=== PATIENT | male | born 1930 | race Asian ===

== ENCOUNTER 2018-05-18 11:37 | Inpatient (IN) | payer MEDICARE, BC, OTHER ==
[~2018-05-18] VITALS: Ht 152.4 cm; Wt 68.5 kg
[~2018-05-18 11:37] MED LIST: ALTACE5 MG PO; APAP500 PO; ASPIRIN EC81 M1 PO; ATORVASTATIN CA20 MG PO; B-COMPLEX PLUS1 EACH PO; BENADRYL25 MG PO; CARDIZEM CD240 MG PO; COREG6.25 MG PO; COUMADIN 2.5MG2.5 M1 PO; COUMADIN 5 MG TA5 M1 PO; CYCLOBENZAPRINE5 MG PO; FISH OIL 1,001000 M1 PO; GLUCOPHAGE500 MG PO; GLUCOSAMINE1000 MG PO; GLUMETZA500 PO; LAVITRA PO; LEVITRA20 MG PO; LOPRESSOR25 PO; MULTIVITAMINS1 EAC7 PO; RAMIPRIL PO; SORINE 80 MG TA80 M1 PO; SOTALOL240 MG PO; SYNTHROID100 MCG PO; TIKOSYN.5 PO; TOPROL XL50 MG PO; [UNRECOGNIZED DRUG - OTHER] PO
[2018-05-18 11:39] VITALS: BP 132/105
[2018-05-18] MEDS ORDERED: METFORMIN HCL500 MG PO (12:04)
[2018-05-18] MEDS ORDERED: TYLENOL325 MG PO (12:04)
[2018-05-18] MEDS ORDERED: TIKOSYN.5 PO (12:06)
[2018-05-18] MEDS ORDERED: FISH OIL 1,001000 M2 PO (12:07)
[2018-05-18] MEDS ORDERED: MULTI VITAMIN1 EACH PO (12:07)
--- NOTE | 2018-05-18 12:13 | NUR ---
PT'S NURSE AT [facility], VIRGIE, CONTACTED FOR MORE INFORMATION ABOUT AN URGENT CARE VISIT & PRESCRIBED MEDS FROM THAT VISIT PRIOR TO HIS ADMISSION TO [facility]. PER VIRGIE, PT WAS ADMITTED FOR CLOSED HEAD INJURY INTO [facility] 05/15/18 AND HE HAS BEEN MORE ALERT THIS MORNING THAN ANY MORNING PRIOR SINCE ADMISSION. PT HAD BEEN ON FLEXERIL PER VIRGIE, AND SHE HAD DR. César TREJO YESTERDAY DUE TO LETHARGY IN THE MORNINGS BUT PT TOOK XANAX LAST NIGHT AND STARTED ZANAFLEX THIS AM. REPORTED THIS INFORMATION TO DR. TORRES.
[2018-05-18] MEDS ORDERED: LEVITRA20 MG PO (12:14)
[2018-05-18] MEDS ORDERED: VIAGRA100 MG PO (12:17)
[2018-05-18] MEDS ORDERED: LIPITOR 20 MG T20 M1 PO (12:18)
[2018-05-18] MEDS ORDERED: TOPROL XL100 MG PO (12:18)
[2018-05-18] MEDS ORDERED: OMEPRAZOLE 20 M20 M1 PO (12:18)
[2018-05-18] MEDS ORDERED: SYNTHROID100 MC1 PO (12:19)
[2018-05-18] MEDS ORDERED: ASPIR 8181 MG PO (12:19)
[2018-05-18] MEDS ORDERED: COLACE100 MG PO (12:19)
[2018-05-18] MEDS ORDERED: GLUCOSAMINE CH1 EAC2 PO (12:20)
[2018-05-18] MEDS ORDERED: ALTACE10 MG PO (12:21)
[2018-05-18] MEDS ORDERED: COUMADIN 5 MG TA5 M1 PO (12:22)
[2018-05-18] MEDS ORDERED: XANAX 0.25 MG0.25 MG PO (12:23)
[2018-05-18] MEDS ORDERED: COUMADIN 4 MG TA4 M1 PO (12:23)
[2018-05-18] MEDS ORDERED: ZANAFLEX2 MG PO (12:24)
[2018-05-18 12:34] LABS: HEMATOCRIT 36.5 % (42.0-52.0); HEMOGLOBIN 12.3 gm/dL (14.0-18.0); MCH 33.3 pg (26.0-34.0); MCHC 33.6 g/dL (28.0-37.0); MPV 8.2 fl. (7.2-11.1); NUCLEATED RBCS 0 /100WBC; PLATELET COUNT* 377 thou/uL (150-400); RBC 3.69 mil/uL (4.50-6.00); WBC 9.6 thou/uL (4.0-11.0)
[2018-05-18 12:47] LABS: INR 4.3; PROTIME 43.9 Seconds (9.20-11.50)
[2018-05-18 12:53] LABS: PCO2 31.4 mmHg (35.0-45.0)
[2018-05-18 13:00] LABS: ALBUMIN 2.3 g/dL (3.4-5.0); ALKALINE PHOSPHATASE 106 U/L (46-116); ANION GAP 10 mmol/L (7-16); BUN 31 mg/dL (7-18); CALCIUM 8.5 mg/dL (8.5-10.1); CHLORIDE 99 mmol/L (98-107); CO2 23 mmol/L (21-32); GLUCOSE 135 mg/dL (70-99); POTASSIUM 4.5 mmol/L (3.5-5.1); SGOT 99 U/L (15-37); SGPT 112 U/L (30-65); SODIUM 132 mmol/L (136-145); TOTAL BILIRUBIN 0.8 mg/dL (<0.1-1.0); TOTAL PROTEIN 7.4 g/dL (6.4-8.2); TROPONIN-I LEVEL <0.06 ng/mL (<0.06)
[2018-05-18 13:08] LABS: ABSOLUTE LYMPHOCYTES 1.1 thou/uL (0.8-5.3); ABSOLUTE MONOCYTES 0.2 thou/uL (0.0-1.2); ABSOLUTE NEUTROPHILS 8.4 thou/uL (1.6-8.1); ATYPICAL LYMPHS 3 %; PLATELET ESTIMATE ADEQUATE
[2018-05-18 13:31] LABS: URINE BILIRUBIN NEGATIVE (Negative); URINE BLOOD NEGATIVE (Negative); URINE CLARITY CLEAR; URINE COLOR YELLOW; URINE GLUCOSE-RANDOM NEGATIVE (Negative); URINE KETONES NEGATIVE (Negative); URINE LEUKOCYTES-REFLEX NEGATIVE (Negative); URINE NITRITE-REFLEX NEGATIVE (Negative); URINE PROTEIN TRACE (Negative); URINE SPECIFIC GRAVITY >= 1.030 (1.005-1.030); URINE UROBILINOGEN 0.2 E.U./dl (0.2-1.0)
[2018-05-18 13:50] VITALS: BP 93/55
[2018-05-18 15:00] VITALS: BP 94/55
--- NOTE | 2018-05-18 16:28 | NUR ---
ASSUMED PT CARE REPORT RECEIVED FROM ER NURSE. PT ARRIVED ON FLOOR VIA STRETCHER ACCOMPANIED BY NURSE AND DAUGHTER. PT WAS SLEEPY DURING THE FIRST HOURS AFTER ADMISSION. ADMISSION HX OBTAINED FROM DAUGHTER WHO KNOWS PT VERY WELL. VSS. BP SOFT 94/55. NS WIDE OPEN ADMINISTERED. PT COMPLAINS OF PAIN IN R SHOULDER. LIDOCAINE PATCH APPLIED ORDERED. HEATING PAD ORDERED. WILL USE ON SHOULDER WELL. ORTHO SX CONSULTED. AWAIING FOR CALL BACK. PT HAS A PACER AND IS A PACED. HEART RATE 7O. PT USUALLY WEARS CPAP AT HS. SCDS IN PLACE. PT IS TO BE TURNED Q2 HOURS DUE TO RONAL SCALE. PT ORDERED DINER WITH FAMILY IN ROOM. PT WAS MORE AWAKE WHEN FAMILY CAME IN. FAMILY LEFT AFTER 1 HOUR. PT NOW RESTING IN BED. CALL LIGHT AT REACH. FALL PRECAUTION IN PLACE
--- NOTE | 2018-05-18 16:37 | NUR ---
BEDSIDE SWALLOWING EVAL DONE. PT COUGHS ON SIP OF WATER. FAMILY MEMBER MENTIONED THAT PT IS ON REGULAR DIET. HE ATE A BURGER LAST NIGHT. BUT HAS BEEN ON NECTAR THICKEN LIQUID AT THE SKILLED NURSING. SPEECH THERAPY OREDERED FOR THE MORNING. PT DIET MODIFIED TO REGULAR AND THICKEN FLUID
--- NOTE | 2018-05-18 18:00 | NUR ---
PT AWAKE AGAIN AND ATE HIS DINER MEAL. IV FLUID NOW INFUSING AT 100 PER HOUR. NO METFORMIN GIVEN BLOOD SUGAR IS 105 THIS EVENING. HEATING PAD WORKING OK INTERMITTENTLY EVERY 20 MINUTES.WILL CONTINUE TO MONITOR
[2018-05-18 19:30] VITALS: BP 110/60
[2018-05-19] VITALS: BP 138/72
[2018-05-19 04:00] VITALS: BP 128/66
--- NOTE | 2018-05-19 04:10 | NUR ---
RECIEVED REPORT AND ASSUMED CARE AT 1900. MOTHER REPAIRER IN PLACE. VITAL SIGNS STABLE. PT HAS RIGHT SHOULDER PAIN HEATING PACK AND REST HELPING TO MANAGE PAIN AT THIS TIME. ASSESSMENT COMPLETED AND DISCUSSED PLAN OF CARE. BED LOCK, ALARM ON AND CALL LIGHT WITHIN REACH. FALL PRECAUTIONS IN PLACE. HOURLY ROUNDING DONE AND ALL NEEDS MET. NURSING WILL CONTINUE TO MONITOR.
[2018-05-19 05:03] LABS: HEMATOCRIT 34.6 % (42.0-52.0); HEMOGLOBIN 11.5 gm/dL (14.0-18.0); MCH 32.9 pg (26.0-34.0); MCHC 33.1 g/dL (28.0-37.0); MCV 99.4 fL (80.0-100.0); RBC 3.48 mil/uL (4.50-6.00); WBC 7.4 thou/uL (4.0-11.0)
[2018-05-19 05:14] LABS: INR 4.4; PROTIME 44.8 Seconds (9.20-11.50)
[2018-05-19 05:37] LABS: CALCIUM 8.5 mg/dL (8.5-10.1); CREATININE 0.7 mg/dL (0.6-1.3); MAGNESIUM 1.5 mg/dL (1.8-2.4); POTASSIUM 4.4 mmol/L (3.5-5.1)
[2018-05-19 08:00] VITALS: BP 121/63
[2018-05-19 12:44] VITALS: BP 97/47
--- NOTE | 2018-05-19 13:05 | NUR ---
CM spoke with Pt's dtr via phone. Pt normally resides at home alone, but has recently been at [facility] post a fall. Pt's is a LTC resident at [facility]. Dtr unsure if she wants Pt to return to [facility], hopeful that he will be able to return home with HH. Pt has a cane that he uses PRN. Therapies ordered. Following.
--- NOTE | 2018-05-19 15:40 | NUR ---
I have reviewed the documentation by LUIS WOLFE from TODAY to 05/19/18 and I concur with it. SEBASTIEN BARBOSA
[2018-05-19 16:00] VITALS: BP 130/61
--- NOTE | 2018-05-19 17:38 | EKG ---
[place] [address] ELECTROCARDIOGRAM REPORT Name: JONATHAN FARRELL Room: [address] ADM IN .R.#: [id number] Admission: 05/18/18 Attend Phys: Ignacio Nina MD Discharge: Date of : 34 Report #: [id number] THIS REPORT FOR: //name// [facility] ED Test Date: 2018-05-18 Test Time: 13:12:44 Pat Name: JONATHAN FARRELL Department: Room: [facility] Gender: M Verification Lead: KAITLYNN : 1930 Requested By: Cyndi Denton Order Number: [id number] MD: Tyrone Reed Measurements Intervals [place] Rate: 70 P: 0 SD: 175 QRS: -25 QRSD: 127 T: -46 QT: 554 QTc: 598 Interpretive Statements Ventricular-paced rhythm Prolonged QT interval No further analysis attempted due to paced rhythm Baseline wander in lead(s) III No previous ECG available for comparison Electronically Signed On 05-19-2018 17:37:53 CDT by Tyrone Reed [email or web address] <ELECTRONICALLY SIGNED> By: Tyrone Reed MD, FACC 05/19/18 1737 1312 1312 Tyrone Reed MD, FAC /EPI
--- NOTE | 2018-05-19 19:44 | NUR ---
RECEIVED REPORT FROM NIGHT NURSE, ASSUMED CARE OF PT AROUND 0730. PT ALERT, ORIENTED TO SELF ONLY. ABLE TO FOLLOW SIMPLE COMMANDS. VSS. STEM ROLLER OR CRUSHER OPERATOR IN PLACE TRACING VPACED. AM ASSESSMENT AND VITALS COMPLETED CHARTED. IV'S INTACT. MEDS PER EMAR. PT DRANK ENSURE SHAKES FOR ALL MEALS, NOT INTERESTED IN SOLID FOOD. SEEN BY THERAPIES THIS SHIFT, UP TO CHAIR. INCONTINENT OF URINE, CLEANED MULTIPLE TIMES THIS SHIFT. TURNS Q2HRS. FALL PRECAUTIONS IN PLACE. CALL LIGHT IS WITHIN REACH. HOURLY ROUNDING.
[2018-05-19 20:00] VITALS: BP 110/65
[2018-05-20] VITALS: BP 122/68
[2018-05-20 04:00] VITALS: BP 127/71
[2018-05-20 05:15] LABS: PROTIME 21.7 Seconds (9.20-11.50)
[2018-05-20 05:35] LABS: INR 2.1
[2018-05-20 08:30] VITALS: BP 144/75
--- NOTE | 2018-05-20 08:40 | NUR ---
PATIENT RESTING IN BED. REPORT GIVEN TO ONCOMING NURSE.
[2018-05-20 12:50] VITALS: BP 130/63
[2018-05-20 17:42] VITALS: BP 111/56
--- NOTE | 2018-05-20 18:17 | NUR ---
PATIENT SOMEWHAT PROGRESSED WELL TOWARDS GOALS THIS SHIFT. COGNITION WAS MUCH MORE CLEAR THIS SHIFT, ABLE TO ANSWER MOST QUESTIONS APPRORPIATLEY. STILL HAVING RIGHT SHOULDER PAIN AND SEEMS TO FAVOR SHOULDER A LOT. HOT PAD ON AND OFF THROUGHOUT SHIFT. NO PAIN MEDICATION NEEDED. WORKED WITH PT/OT THIS SHIFT. WEANED OFF OXYGENATION AND MAINTAINING SATS. DAUGHTER VISITED THIS AFTERNOON AND HAPPY WITH PATIENT IMPROVMENT. WILL CALL TOMORROW FOR UPDATE. VITALS REMAIN STABLE THROUGHOUT SHIFT. BED IN LOWEST POSITION, CALL LIGHT IN REACH, POPCORN ATTENDANT IN PLACE.
[2018-05-20 19:50] VITALS: BP 122/64
[2018-05-21] VITALS: BP 124/73
[2018-05-21 04:00] VITALS: BP 123/77
[2018-05-21 05:44] LABS: INR 1.5; PROTIME 15.3 Seconds (9.20-11.50)
--- NOTE | 2018-05-21 05:49 | NUR ---
VITALS WNL. SEE MAR. SEE CHARTING. FALL PRECAUTIONS IN PLACE. HOURLY ROUNDING FOR SAFETY.
[2018-05-21 08:00] VITALS: BP 136/76
[2018-05-21] MEDS ORDERED: COUMADIN 4 MG TA4 M1 PO (11:34)
[2018-05-21] MEDS ORDERED: VOLTAREN GEL 1100 G1 TOP (11:36)
--- NOTE | 2018-05-21 12:02 | NUR ---
Pt discharging back to [facility] skilled today. Faxed dc orders. Chart copied. Nurse report number provided [phone]. Updated Pt's dtr, Cecilia. Facility will tile picker at 430pm.
--- NOTE | 2018-05-21 12:27 | NUR ---
ASSUMED PT CARE AT 0700 PT IS ALERT AND ORIENTED X 2 PT IS CONFUSED PT C/O SHOULDER PAIN APPLIED ORDERED MEDICATION WHICH PT SHOWS SIGNS OF RELIEVED PAIN, PT SHOWS NO SIGNS OF SOA ON RA, PT IS UP WITH ASSIST X 1 PT IS IMPULSIVE AND A FALL RISK CHAIR ALARM IN PLACE, PT IS VPACED ON THE MONITOR HAS PACEMAKER, PT IS PROGRESSING TOWARDS GOALS, PT IS CLEARED FOR DISCHARGE PT WILL TRANSFER BACK TO [facility], WILL CONTINUE TO MONITOR
[2018-05-21 13:01] VITALS: BP 136/76
--- NOTE | 2018-05-21 15:24 | NUR ---
PT. NOT SEEN DUE TO OT SCHEDULE CONFLICT
== END 2018-05-21 16:30 | DRG 92 ==
LOC: M.ERS 11:37 → M.2W 13:23 → M.TBA-ER 13:23 → M.2W 14:17
PROVIDERS: Personal Emergency Response Attendant; ADMIT Internal Medicine
DX: G92 Toxic encephalopathy (principal); E44.0 Moderate protein-calorie malnutrition; I48.91 Unspecified atrial fibrillation; I25.10 Atherosclerotic heart disease of native coronary artery without angina pectoris; I25.5 Ischemic cardiomyopathy; E11.9 Type 2 diabetes mellitus without complications; I10 Essential (primary) hypertension; Z96.653 Presence of artificial knee joint, bilateral; T50.905A Adverse effect of unspecified drugs, medicaments and biological substances, initial encounter; S49.91XA Unspecified injury of right shoulder and upper arm, initial encounter; I49.5 Sick sinus syndrome; E86.9 Volume depletion, unspecified; M24.411 Recurrent dislocation, right shoulder; E78.5 Hyperlipidemia, unspecified; K21.9 Gastro-esophageal reflux disease without esophagitis; Z90.49 Acquired absence of other specified parts of digestive tract; Z98.42 Cataract extraction status, left eye; Z98.41 Cataract extraction status, right eye; Z87.891 Personal history of nicotine dependence; Z95.0 Presence of cardiac pacemaker; Z86.73 Personal history of transient ischemic attack (TIA), and cerebral infarction without residual deficits; Z68.29 Body mass index [BMI] 29.0-29.9, adult; Z79.82 Long term (current) use of aspirin; Z79.899 Other long term (current) drug therapy; W18.39XA Other fall on same level, initial encounter; Y93.89 Activity, other specified; Y92.89 Other specified places as the place of occurrence of the external cause; Y99.8 Other external cause status

== ENCOUNTER 2019-03-08 12:52 | Inpatient (IN) | payer MEDICARE, BC, OTHER ==
[~2019-03-08] VITALS: Ht 157.5 cm; Wt 71.7 kg
[~2019-03-08 12:52] MED LIST changes: +ALTACE10 MG PO; +ASPIR 8181 MG PO; +COLACE100 MG PO; +COUMADIN 4 MG TA4 M1 PO; +FISH OIL 1,001000 M2 PO; +GLUCOSAMINE CH1 EAC2 PO; +LIPITOR 20 MG T20 M1 PO; +METFORMIN HCL500 MG PO; +MULTI VITAMIN1 EACH PO; +OMEPRAZOLE 20 M20 M1 PO; +SYNTHROID100 MC1 PO; +TOPROL XL100 MG PO; +TYLENOL325 MG PO; +VIAGRA100 MG PO; +VOLTAREN GEL 1100 G1 TOP; +XANAX 0.25 MG0.25 MG PO; +ZANAFLEX2 MG PO
[2019-03-08 12:53] VITALS: BP 131/66
[2019-03-08 13:23] LABS: ABSOLUTE BASOPHILS 0.1 thou/uL (0.0-0.2); ABSOLUTE EOSINOPHILS 0.1 thou/uL (0.0-0.7); ABSOLUTE MONOCYTES 0.7 thou/uL (0.0-1.2); ABSOLUTE NEUTROPHILS 6.9 thou/uL (1.6-8.1); BASOPHILS 1.1 %; EOSINOPHILS 1.7 %; HEMATOCRIT 35.7 % (42.0-52.0); HEMOGLOBIN 12.5 gm/dL (14.0-18.0); LYMPHOCYTES 11.8 %; MCH 35.1 pg (26.0-34.0); MCV 100.1 fL (80.0-100.0); MONOCYTES 7.7 %; MPV 7.7 fl. (7.2-11.1); NUCLEATED RBCS 0 /100WBC; PLATELET COUNT* 170 thou/uL (150-400); POLYS 77.7 %; RBC 3.57 mil/uL (4.50-6.00); RDW-CV 14.6 % (10.5-14.5); WBC 8.9 thou/uL (4.0-11.0)
[2019-03-08 13:52] LABS: CALCIUM 8.7 mg/dL (8.5-10.1); POTASSIUM 4.7 mmol/L (3.5-5.1)
[2019-03-08 13:56] LABS: ALBUMIN 3.8 g/dL (3.4-5.0); TOTAL BILIRUBIN 1.2 mg/dL (<0.1-1.0); TOTAL PROTEIN 7.4 g/dL (6.4-8.2)
[2019-03-08 15:39] LABS: URINE BILIRUBIN NEGATIVE (Negative); URINE BLOOD TRACE (Negative); URINE CLARITY CLEAR; URINE COLOR YELLOW; URINE GLUCOSE-RANDOM NEGATIVE (Negative); URINE KETONES NEGATIVE (Negative); URINE LEUKOCYTES-REFLEX NEGATIVE (Negative); URINE NITRITE-REFLEX NEGATIVE (Negative); URINE PROTEIN NEGATIVE (Negative); URINE SPECIFIC GRAVITY 1.015 (1.005-1.030); URINE UROBILINOGEN 0.2 E.U./dl (0.2-1.0)
[2019-03-08 16:32] LABS: INFLUENZA A ANTIGEN Negative (Negative); INFLUENZA B ANTIGEN Negative (Negative)
[2019-03-08 16:40] VITALS: BP 120/75
[2019-03-08 16:50] VITALS: BP 117/52
--- NOTE | 2019-03-08 17:57 | NUR ---
RECEIVED REPORT FROM GIANLUCA IN ED AND ASSUMED CARE OF PT @ 0674.DIETITIAN CONSULTANT IN PLACE TRACING V PACED.PT IS A/O X 3- DROWSY AND SLIGHTLY CONFUSED.NO C/O PAIN.PT AND FAMILY INFORMED OF THE PLAN OF CARE AND COMMUNICATES UNDERSTANDING-PT NEEDS REINFORCED.PT LEFT RESTING IN BED WITH CALL LIGHT AND FALL PRECAUTIONS IN PLACE.WILL CONTINUE TO MONITOR FOR DURATION OF SHIFT.
[2019-03-08 19:05] LABS: INR 1.8; PROTIME 18.2 Seconds (9.20-11.50)
[2019-03-08 20:00] VITALS: BP 125/56
[2019-03-08 21:07] LABS: AMP/METHAMP Negative (Negative); BARBITURATES Negative (Negative); BENZODIAZEPINES Negative (Negative); COCAINE Negative (Negative); METHADONE Negative (Negative); OPIATES Negative (Negative); PCP Negative (Negative); THC Negative (Negative)
[2019-03-08 23:40] VITALS: BP 96/60
[2019-03-09 04:00] VITALS: BP 107/60
[2019-03-09 04:47] LABS: ABSOLUTE EOSINOPHILS 0.1 thou/uL (0.0-0.7); ABSOLUTE MONOCYTES 0.7 thou/uL (0.0-1.2); ABSOLUTE NEUTROPHILS 4.3 thou/uL (1.6-8.1); BASOPHILS 0.5 %; EOSINOPHILS 1.8 %; HEMATOCRIT 35.2 % (42.0-52.0); HEMOGLOBIN 12.3 gm/dL (14.0-18.0); LYMPHOCYTES 16.9 %; MCH 34.7 pg (26.0-34.0); MCHC 34.9 g/dL (28.0-37.0); MCV 99.3 fL (80.0-100.0); MONOCYTES 11.4 %; MPV 8.3 fl. (7.2-11.1); NUCLEATED RBCS 0 /100WBC; PLATELET COUNT* 156 thou/uL (150-400); POLYS 69.4 %; RBC 3.54 mil/uL (4.50-6.00); RDW-CV 14.6 % (10.5-14.5); WBC 6.1 thou/uL (4.0-11.0)
[2019-03-09 04:58] LABS: INR 1.6; PROTIME 16.1 Seconds (9.20-11.50)
[2019-03-09 05:04] LABS: CALCIUM 8.1 mg/dL (8.5-10.1); CREATININE 0.8 mg/dL (0.6-1.3); POTASSIUM 4.2 mmol/L (3.5-5.1)
--- NOTE | 2019-03-09 05:57 | NUR ---
ASSUMED PT CARE AT 1900. PT FORGETFUL, UNABLE TO RECALL HOW PT GOT TO HOSPITAL OR WHY. V PACED ON PLANER HAND. PT VOICED NO CONCERNS THIS SHIFT. HIGH FALL PRECAUTIONS IN PLACE, HOURLY ROUNDING COMPLETED. CALL LIGHT WITHIN REACH. NEGATIVE SEPSIS SCREENING THIS SHIFT.
[2019-03-09 06:31] LABS: CHOLESTEROL 96 mg/dL (<200); HDL CHOLESTEROL 37 mg/dL (>40); LDL CHOLESTEROL 42 mg/dL (<100); SERUM ASSESSMENT Clear; TC:HDL 2.6 Ratio (Not establshd); TRIGLYCERIDE 88 mg/dL (<150); VLDL 18 mg/dL (<40)
[2019-03-09 06:34] LABS: ESR (SEDRATE) 44 mm/hr (0-20)
[2019-03-09 08:00] VITALS: BP 91/58
--- NOTE | 2019-03-09 09:59 | EKG ---
[place] [address] ELECTROCARDIOGRAM REPORT Name: SAMREDDYJONATHAN Room: [address] ADM IN [facility].#: [id number] Admission: 03/08/19 Attend Phys: Juanjo Skaggs MD Discharge: Date of : 34 Report #: [id number] THIS REPORT FOR: //name// [facility] ED Test Date: 2019-03-08 Test Time: 13:12:00 Pat Name: JONATHAN FARRELL Department: Room: [facility] Gender: M Technical Sales Specialist: LUNA : 1930 Requested By: Darryl Rodriguez Order Number: [id number] MD: Black Estrada Measurements Intervals [place] Rate: 76 P: 0 MO: 145 QRS: -53 QRSD: 123 T: QT: 447 QTc: 503 Interpretive Statements atrial fibrillation with ventricular paced beats No further analysis attempted due to paced rhythm Compared to ECG 05/18/2018 13:12:44 no change Electronically Signed On 03-09-2019 9:58:53 INTERNATIONAL SALES MANAGER by Black Estrada [email or web address] <ELECTRONICALLY SIGNED> By: Black Estrada MD, [facility] 03/09/19 0958 1312 1312 Black Estrada MD, [facility] /EPI
--- NOTE | 2019-03-09 11:25 | NUR ---
ASSUMED CARE OF PATIENT THIS AM AT 0730. PATIENT IS ALERT AND ORIENTED X 4. HE DENIES PAIN AND DISCOMFORT. TELE SHOWS V PACED RHYTHM. PATIENT IS SOMEWHAT ANXIOUS ABOUT NOT BEING ABLE TO FIND HIS CELL PHONE. PATIENT IS TAKING HIS CLEAR LIQUID DIET WELL. ATTEMPTED TO CALL [facility] TO TRY TO LOCATE PATIENT'S CELL PHONE. SO FAR UNABLE TO LOCATE IT.PATIENT IS WORKING WITH PT AND OT. HE HAS BEEN UP IN THE HALLS WITH ASSIST. WILL CONTINUE TO MONITOR.
[2019-03-09 12:00] VITALS: BP 107/54
--- NOTE | 2019-03-09 14:33 | 2DMMODE ---
[place] [address] 2 D/M-MODE ECHOCARDIOGRAM Name: JONATHAN FARRELL Room: [address] IN [facility]#: [id number] Admission: 03/08/19 Attend Phys: Juanjo Skaggs, Discharge: Date of : 34 Date of Service: 03/09/19 1433 Report #: [id number] THIS REPORT FOR: //name// APPROVED REPORT Study performed: 03/09/2019 11:46:20 EXAM: Limited 2D Echocardiogram Patient Location: In-Patient Room #: 218 Status: routine BSA: 1.64 HR: 70 bpm BP: 91/58 mmHg Rhythm: NSR Other Information Study Quality: Good Indications CVA/TIA Echo Enhancing Agent Indication: Rule out Shunt Agent(s) / Amount(s) Used: Agitated Saline 10 cc 2D Dimensions IVSd: 10.72 (7-11mm) LVDd: 48.88 mm PWd: 11.51 (7-11mm) LVDs: 35.16 (25-40mm) Volumes Left Atrial Volume (Systole) LA ESV Index: 83.00 mL/m2 Left Ventricle The left ventricle is normal size. There is normal LV segmental wall motion. There is normal left ventricular wall thickness. The left ventricular systolic function is normal. The left ventricular ejection fraction is within the normal range. LVEF is 50-55%. Right Ventricle The right ventricle is normal size. The right ventricular systolic function is normal. Pacemaker lead is present in the right ventricle. [address] [address] 2 D/M-MODE ECHOCARDIOGRAM Name: JONATHAN FARRELL Niru Room: [address]#: [id number] Admission: 03/08/19 Attend Phys: Juanjo Skaggs, Discharge: Date of : 34 Date of Service: 03/09/19 1433 Report #: [id number] Atria Left atrium is severely dilated. Interatrial septum is intact without evidence of ASD or PFO. Right atrium is mildly dilated. Aortic Valve The aortic valve is normal in structure. Mitral Valve The mitral valve is normal in structure. Tricuspid Valve The tricuspid valve is normal in structure. Pulmonic Valve The pulmonary valve is normal in structure. Great Vessels The aortic root is normal in size. IVC is normal in size and collapses >50% with inspiration. Pericardium There is no pericardial effusion. <Conclusion> LVEF is 50-55%. Left atrium is severely dilated. Right atrium is mildly dilated. Interatrial septum is intact without evidence of ASD or PFO. <ELECTRONICALLY SIGNED> By: Black Estrada MD, FACC 03/09/19 [phone] 32 Black Estrada MD, FACC /INF
--- NOTE | 2019-03-09 15:13 | NUR ---
Pt is A&O. Resides at home alone. Pt's is a LTC resident at [facility] and Pt states that he visits and assists with meals for her daily. Independent. No DME. No hx of HH. Hx of SNF at [facility]. Pt to dc to home today. Orders faxed to outpt therapy. Dtr to brass pickler and transport after she gets off from work.
[2019-03-09 15:24] VITALS: BP 107/54
[2019-03-09 15:35] VITALS: BP 107/54
[2019-03-10 02:06] LABS: GLYCOHEMOGLOBIN (HGB A1C) 5.8 % (4.8-5.6)
== END 2019-03-09 18:39 | disposition home or self-care (01) | DRG 391 ==
LOC: M.ERS 12:52 → M.2W 16:11 → M.TBA-ER 16:11 → M.2W 16:52
PROVIDERS: Family Medicine; ADMIT Internal Medicine
DX: K29.00 Acute gastritis without bleeding (principal); G93.41 Metabolic encephalopathy; D68.59 Other primary thrombophilia; I48.0 Paroxysmal atrial fibrillation; I25.10 Atherosclerotic heart disease of native coronary artery without angina pectoris; I25.5 Ischemic cardiomyopathy; I34.0 Nonrheumatic mitral (valve) insufficiency; E11.9 Type 2 diabetes mellitus without complications; I07.1 Rheumatic tricuspid insufficiency; I10 Essential (primary) hypertension; I49.5 Sick sinus syndrome; G47.30 Sleep apnea, unspecified; E78.5 Hyperlipidemia, unspecified; K21.9 Gastro-esophageal reflux disease without esophagitis; Z96.653 Presence of artificial knee joint, bilateral; Z79.01 Long term (current) use of anticoagulants; Z98.42 Cataract extraction status, left eye; Z90.89 Acquired absence of other organs; Z98.41 Cataract extraction status, right eye; Z86.73 Personal history of transient ischemic attack (TIA), and cerebral infarction without residual deficits; Z79.84 Long term (current) use of oral hypoglycemic drugs; I25.2 Old myocardial infarction; Z79.899 Other long term (current) drug therapy; Z95.0 Presence of cardiac pacemaker